=== PATIENT | female | born 1945 | race Native Hawaiian/Other Pacific Islander ===

== ENCOUNTER 2017-01-24 22:17 | Emergency (ER) | payer MEDICARE, OTHER ==
--- NOTE | 2017-01-24 23:22 | C.PDOC ---
History Of Present Illness <Clayton Rosario - Last Filed: 01/25/17 20:34> <Jay Martinez P - Last Filed: 01/27/17 18:12> 71 yo female, hx of parkinsons, presents with fall. as per son, fell 3 days ago , c/o of right hip pain. pt felt "dizzy" prior to fall. pt reports h/o of vertigo, and states that the vertigo caused her to fall. pt states she has no colón , and vertigo has stopped at this time. no other complaints, fevers, cp, n/v/d, urinary changes or other complaints (Abraham,Clayton) <Clayton Rosario - Last Filed: 01/25/17 20:34> <Jay Martinez P - Last Filed: 01/27/17 18:12> Time Seen by Provider: 01/24/17 23:19 Chief Complaint (Nursing): Hip Pain Past Medical History Reviewed: Historical Data, Nursing Documentation, Vital Signs <Clayton Rosario - Last Filed: 01/25/17 20:34> - Medical History PMH: Dementia, Parkinson's Disease Denies: Chronic Kidney Disease Family History: States: Unknown Family Hx - Social History Hx Alcohol Use: No Hx Substance Use: No - Immunization History Hx Tetanus Toxoid Vaccination: No Hx Influenza Vaccination: No Hx Pneumococcal Vaccination: No <Jay Martinez P - Last Filed: 01/27/17 18:12> Vital Signs: Last Vital Signs Temp 97.4 F L 01/25/17 01:03 Pulse 83 01/25/17 01:03 Resp 16 01/25/17 01:03 BP 132/79 01/25/17 01:03 Pulse Ox 100 01/25/17 01:03 Review Of Systems Musculoskeletal: Positive for: Other ((+)right hip pain) <Clayton Rosario - Last Filed: 01/25/17 20:34> Physical Exam - Physical Exam Appears: Well, No Acute Distress Skin: Normal Color, Warm, Dry Eye(s): bilateral: Normal Inspection, PERRL, EOMI Nose: Normal Throat: Normal Neck: Normal Cardiovascular: Rhythm Regular Respiratory: Normal Breath Sounds Gastrointestinal/Abdominal: Normal Exam Back: Normal Inspection Extremity: Normal ROM Extremity: Right: Other ((+)right hip ttp (-)defomity, (+)2+ pulses) <Clayton Rosario - Last Filed: 01/25/17 20:34> ED Course And Treatment - Laboratory Results Result Diagrams: 01/24/17 23:35 01/24/17 23:35 <Clayton Rosario - Last Filed: 01/25/17 20:34> - Laboratory Results Result Diagrams: 01/24/17 23:35 01/24/17 23:35 O2 Sat by Pulse Oximetry: 98 <Jay Martinez - Last Filed: 01/27/17 18:12> Medical Decision Making <Clayton Rosario - Last Filed: 01/25/17 20:34> <Jay Martinez - Last Filed: 01/27/17 18:12> Medical Decision Making: r/o underlying etiology of fall - r/o fx - labs imaging pending 1230: labs unremarkable. pt offered observation admission for ?syncope vs vertigo. pt refuses. xr neg as read by me. pt asking for d/c. return precuaitons advised. son bedside agrees to take pt home. pt declines pain meds in er. (Clayton Rosario) I was not involved in the care of this patient. (Jay Martinez) Disposition - Disposition Disposition Time: 02:00 <Clayton Rosario - Last Filed: 01/25/17 20:34> <Jay Martinez - Last Filed: 01/27/17 18:12> - Disposition Referrals: Omega Swanson MD [Staff Provider] - Disposition: HOME/ ROUTINE Condition: STABLE Additional Instructions: return to er with worsening symptoms or concerns. Instructions: Fall Prevention for Older Adults (ED), Dizziness (ED) - Clinical Impression Clinical Impression: Hip pain
[2017-01-24 23:40] LABS: RBC URINE 1 /hpf (0-3); URINE BILIRUBIN NEGATIVE (NEGATIVE); URINE BLOOD NEGATIVE (NEGATIVE); URINE COLOR Straw (YELLOW); URINE GLUCOSE (UA) NORMAL (Normal); URINE KETONE NEGATIVE (NEGATIVE); URINE LEUKOCYTE ESTERASE NEG Leu/uL (Negative); URINE PROTEIN NEGATIVE (NEGATIVE); URINE UROBILINOGEN NORMAL mg/dL (0.2-1.0); WBC URINE 1 /hpf (0-5)
[2017-01-24 23:45] LABS: CHLORIDE 100 mmol/L (98-107); SODIUM 140 mmol/L (132-148)
[2017-01-24 23:46] LABS: POTASSIUM 4.2 mmol/L (3.6-5.2)
[2017-01-24 23:48] LABS: ALKALINE PHOSPHATASE 108 U/L (38-126); AST/SGOT 22 U/L (14-36); BILIRUBIN,TOTAL 0.7 mg/dL (0.2-1.3); BLOOD UREA NITROGEN 16 mg/dL (7-17); CARBON DIOXIDE 26 mmol/L (22-30); GFR AFRICAN-AMERICAN > 60; TOTAL PROTEIN 8.6 g/dL (6.3-8.3)
[2017-01-24 23:49] LABS: ALT/SGPT 17 U/L (9-52); CALCIUM 9.1 mg/dl (8.6-10.4); GLUCOSE,RANDOM 121 mg/dL (65-105)
[2017-01-25 00:01] LABS: BASO % 0.8 % (0.0-2.0); EOS # 0.1 K/uL (0.0-0.7); EOS % 1.5 % (0.0-4.0); HEMATOCRIT 39.4 % (34.0-47.0); LYMPH # 2.4 K/uL (1.0-4.3); LYMPH % 41.7 % (20.0-40.0); MEAN CELL VOLUME 91.4 fL (81.0-99.0); MEAN CORPUSCULAR HEMOGLOBIN 29.7 pg (27.0-31.0); MEAN CORPUSCULAR HGB CONC 32.5 g/dL (33.0-37.0); MEAN PLATELET VOLUME 9.3 fL (7.2-11.7); MONO # 0.5 K/uL (0.0-0.8); MONO % 9.5 % (0.0-10.0); NRBC % 0.1 % (0.0-2.0); RED CELL DISTRIBUTION WIDTH 13.6 % (11.5-14.5); WHITE BLOOD COUNT 5.6 K/uL (4.8-10.8)
[2017-01-25 01:04] VITALS: BP 132/79; PULSE 83; RESP 16; TEMP 97.4
--- NOTE | 2017-01-25 12:22 | RAD ---
PROCEDURE: CHEST RADIOGRAPH, 1 VIEW HISTORY: Chest pain COMPARISON: 04/19/2016. FINDINGS: LUNGS: The lungs are well inflated and clear. . PLEURA: No pneumothorax or pleural fluid seen. CARDIOVASCULAR: Normal. OSSEOUS STRUCTURES: Within normal limits for the patient's age. VISUALIZED UPPER ABDOMEN: Normal. OTHER FINDINGS: None. IMPRESSION: No active pulmonary disease.
--- NOTE | 2017-01-25 14:26 | RAD ---
PROCEDURE: Radiographs of the right femur HISTORY: trauma COMPARISON: TECHNIQUE: AP and lateral views of the right femur were obtained. FINDINGS: Bone alignment and mineralization are normal. There is no acute fracture or bone destruction. The periarticular soft tissues are normal. There is severe tricompartmental degenerative osteoarthrosis in the knee joint. IMPRESSION: No acute fracture or dislocation.
--- NOTE | 2017-01-25 14:37 | RAD ---
PROCEDURE: Radiographs of the pelvis and right hip HISTORY: Trauma COMPARISON: None TECHNIQUE: Frontal radiograph of the pelvis and lateral radiograph of the right hip was obtained. FINDINGS: There is diffuse bone demineralization. There is no acute fracture or bone destruction. Bone alignment is normal. There is mild degenerative osteoarthrosis in the hip and sacroiliac joints. Periarticular soft tissues are normal. IMPRESSION: No acute displaced fracture or dislocation.
[2017-01-27 18:12] VITALS: O2SAT 98
== END 2017-01-25 01:28 | disposition home or self-care (01) ==
LOC: C.ER 22:17
DX: M25.551 Pain in right hip (principal)